=== PATIENT | male | born 1975 | race Caucasian/White ===

== ENCOUNTER → 2016-12-15 | Outpatient (CLI) | payer BC ==
[~2016-12-15] MED LIST: CETIRIZINE; FLONASE NASAL S16 GM NS; OMEPRAZOLE20 MG PO; ZOFRAN4 MG PO
== END ==
LOC: COL.RAD 08:10
DX: C20 Malignant neoplasm of rectum (principal); R91.1 Solitary pulmonary nodule
CPT/HCPCS: Q9967

== ENCOUNTER → 2017-06-09 | Outpatient (CLI) | payer BC | LOC: COL.LAB 08:50 | DX: C20 Malignant neoplasm of rectum (principal) ==

== ENCOUNTER → 2021-09-18 | Outpatient (CLI) | payer BC ==
[2021-09-18 09:37] LABS: BASO % 0.2 % (0.0-2.0); EOS # 0.1 K/mm3 (0.0-0.7); EOS % 1.7 % (0.0-4.0); GRAN # 3.7 K/mm3 (1.4-6.5); GRAN % 71.9 % (42.2-75.2); HEMATOCRIT 44.6 % (42.0-52.0); HEMOGLOBIN 15.5 g/dl (13.5-18.0); LYMPH # 0.8 K/mm3 (1.2-3.4); LYMPH % 15.8 % (20.0-51.0); MEAN CELL VOLUME 90 fl (80.0-100.0); MEAN CORPUSCULAR HEMOGLOBIN 31 pg (27-31); MEAN CORPUSCULAR HGB CONC 35 g/dl (33.0-37.0); MEAN PLATELET VOLUME 9.8 fl (7.4-10.4); MONO # 0.5 K/mm3 (0.1-0.6); PLATELET COUNT 243 K/mm3 (130-400); RED BLOOD COUNT 4.96 M/mm3 (4.20-5.60); REDCELL DISTRIBUTION WIDTH-CV 12.4 % (11.5-14.5)
[2021-09-18 10:14] LABS: ALBUMIN 4.3 gm/dL (3.5-5.0); BILIRUBIN,TOTAL 0.8 mg/dL (0.2-1.2); CALCIUM 9.2 mg/dL (8.4-10.2); CREATININE, serum 0.79 mg/dL (0.72-1.25); POTASSIUM 4.8 mmol/L (3.5-4.5); TOTAL PROTEIN 7.3 gm/dL (6.2-8.1)
== END ==
LOC: COL.LAB 09:04
DX: C20 Malignant neoplasm of rectum (principal)